=== PATIENT | male | born 1955 | race Caucasian/White ===

== ENCOUNTER 2017-05-16 18:04 | Emergency (ER) | payer SELFPAY ==
[~2017-05-16] VITALS: Ht 177.8 cm; Wt 106.6 kg
[~2017-05-16 18:04] MED LIST: ATORVASTATIN CA10 MG PO; LISINOPRIL10 MG PO; LOPRESSOR 25MG25 MG PO; MAG-OX 400400 MG PO; METFORMIN HCL500 MG PO; NORVASC 5MG TAB5 MG PO; PRINIVIL10 MG PO
[2017-05-16 18:17] VITALS: BP 155/92
== END 2017-05-16 19:06 | disposition admitted as inpatient to this hospital (09) ==
LOC: ERH 18:04
DX: R03.0 Elevated blood-pressure reading, without diagnosis of hypertension (principal)